=== PATIENT | female | born 1975 | race Caucasian/White ===

== ENCOUNTER 2017-04-10 09:44 | Emergency (ER) | payer BC, OTHER ==
[~2017-04-10] VITALS: Ht 165.1 cm; Wt 79.0 kg
[~2017-04-10 09:44] MED LIST: CELE20TA PO
[2017-04-10 09:59] VITALS: BP 118/71; PULSE 90; RESP 16; TEMP 98.3; O2SAT 97
--- NOTE | 2017-04-10 10:30 | PD ---
HPI Chief Complaint: Musculoskeletal Complaint Time Seen by Provider: 10:20 Travel History International Travel<30 days: No Contact w/Intl Traveler<30days: No Traveled to known affect area: No History of Present Illness HPI 41-year-old female presents to the emergency department for evaluation of left ankle swelling that started yesterday. 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 She has no sensation from the knee down. This is chronic for her. She states she rolled her ankle yesterday. However, she started to notice worsening swelling. She denies any pain due to history. Patient states she just wants to make sure she did not break it. No fevers or chills. No other complaints. No exacerbating or alleviating factors. Severity is moderate. PFSH Past Medical History Asthma: No Anxiety: No Depression: No Heart Rhythm Problems: No Cancer: No Cardiovascular Problems: No High Cholesterol: No Congestive Heart Failure: No COPD: No Diabetes: No Diminished Hearing: No Endocrine: No Genitourinary: No Hepatitis: No Hiatal Hernia: No Immune Disorder: No Musculoskeletal: Yes (LOW BACK AND LEFT KNEE PAIN) Neurologic: No Psychiatric: No Reproductive: No Respiratory: No Sleep Apnea: No Thyroid Disease: No Ulcer: No ?: Not Past Surgical History AICD: No Arteriovenous Shunt: No Gynecologic Surgery: Yes (FALLOPIAN TUBE REMOVAL) Insulin Pump: No Pacemaker: No Other Surgery: Yes Social History Alcohol Use: No (former) Tobacco Use: Yes (1/2 ppd) Substance Use: No Allergies-Medications (Allergen,Severity, Reaction): Coded Allergies: penicillin G (Unverified Allergy, Mild, Hives, 04/10/17) Reported Meds & Prescriptions Reported Meds & Active Scripts Active Celexa (Citalopram Hydrobromide) 20 Mg Tab 20 Mg PO DAILY Review of Systems Except as stated in HPI: all other systems reviewed are Neg Physical Exam Narrative GENERAL: Well-nourished, well-developed female patient, afebrile. SKIN: Focused skin assessment warm/dry. Patient has ecchymosis and swelling over the left lateral ankle. HEAD: Normocephalic. Atraumatic. EYES: No scleral icterus. No injection or drainage. NECK: Supple, trachea midline. No JVD or lymphadenopathy. CARDIOVASCULAR: Regular rate and rhythm without murmurs, gallops, or rubs. Left pedal pulse is 2+. RESPIRATORY: Breath sounds equal bilaterally. No accessory muscle use. Lungs sounds are clear to auscultation. GASTROINTESTINAL: Abdomen soft, non-tender, nondistended. MUSCULOSKELETAL: No cyanosis, or edema. No tenderness to palpation due to history of not feeling below the knee. She does have swelling and ecchymosis to the left lateral ankle. No obvious deformity. BACK: Nontender without obvious deformity. No CVA tenderness. Data Data Last Documented VS Vital Signs Date Time Temp Pulse Resp B/P (MAP) Pulse Ox O2 Delivery O2 Flow Rate FiO2 04/10/17 09:59 98.3 90 16 118/71 (87) 97 Orders Orders Ankle, Complete (Ahs2abj) (04/10/17 ) Splint Or Brace Apply/Monitor (04/10/17 11:16) Crutches (04/10/17 11:16) MDM Medical Decision Making Medical Screen Exam Complete: Yes Emergency Medical Condition: Yes Medical Record Reviewed: Yes Interpretation(s) X-ray of the left ankle - CONCLUSION: Soft tissue swelling with tiny avulsion lateral malleolus.. Differential Diagnosis Ankle sprain versus fracture versus dislocation Narrative Course 41-year-old female presents to the emergency department for evaluation of left ankle injury that occurred yesterday. X-ray of the left ankle is ordered and pending. X-ray of the left ankle shows soft tissue swelling with tiny avulsion lateral malleolus.. Patient is placed in a Yin splint (posterior short leg/sugar tong) and given crutches. She is instructed to follow-up with orthopedist. She'll be given the name and number of our orthopedist on-call today. She verbalizes agreement and understanding. The patient was discharged in stable condition with instructions, including return instructions and follow up instructions. Diagnosis Primary Impression: Avulsion fracture of talus Qualified Codes: S92.155A - Nondisplaced avulsion fracture (chip fracture) of left talus, initial encounter for closed fracture Referrals: Feroz Raymundo MD call for appointment Patient Instructions: Ankle Fracture (ED), General Instructions Additional Instructions: Wear splint and use crutches. Elevate when you can. Follow-up with orthopedist. Dr. Raymundo is our orthopedist on-call today. Return to the emergency department for any acute worsening of symptoms. Med/Other Pt SpecificInfo: No Change to Meds Disposition: 01 DISCHARGE HOME Condition: Stable Olivia Ramos Apr 10, 2017 10:30
--- NOTE | 2017-04-10 11:00 | RADRPT ---
EXAM DATE/TIME: 04/10/2017 10:37 [facility] COMPARISON: No previous studies available for comparison. INDICATIONS : Rolled left ankle lastnight. Patient states she has drop foot in left leg and has no feeling in that leg. MEDICAL HISTORY : Drop foot in left leg. SURGICAL HISTORY : None. ENCOUNTER: Initial ACUITY: 1 day PAIN SCORE: 0/10 LOCATION: Left ankle. FINDINGS: Soft tissue swelling lateral malleolus. There is small avulsion lateral talus. Anatomic alignment. CONCLUSION: Soft tissue swelling with tiny avulsion lateral malleolus.. Erwin Arrington MD FACR on April 10, 2017 at 10:57 Board Certified Radiologist. This report was verified electronically.
== END 2017-04-10 12:09 | disposition home or self-care (01) ==
LOC: PHED 09:44
DX: S92.155A Nondisplaced avulsion fracture (chip fracture) of left talus, initial encounter for closed fracture (principal); F17.200 Nicotine dependence, unspecified, uncomplicated; Z87.39 Personal history of other diseases of the musculoskeletal system and connective tissue; X50.1XXA Overexertion from prolonged static or awkward postures, initial encounter
CPT/HCPCS: 29515; 73610; 99283; E0113